=== PATIENT | female | born 1990 | race Caucasian/White ===

== ENCOUNTER 2025-08-05 11:07 | Outpatient (CLI) | payer OTHER, SELFPAY ==
--- OUTSIDE RECORDS SUMMARY | 2025-08-05 11:10 | XMS_ITS | Continuity of Care Document ---
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 Plan of Treatment Reminders Order Date Submit Date Provider Last Modified By Organization Details Last Modified Time Details Appointments None recorded. Lab None recorded. Referral None recorded. Procedures None recorded. Surgeries None recorded. Imaging None recorded. Medication Orders phentermine 37.5 mg tablet 2024 025 [facility] [address], [address] [place] [address], [id number], 11:05:37 trazodone 50 mg tablet 2024 025 [facility] [address], [address] [place] [address], [id number], 11:05:33 escitalopra m 10 mg tablet 2024 025 [facility] [address], [address] [place] [address], [id number], 11:05:29 Lo Loestrin Fe 1 mg-10 mcg (24)/10 mcg (2) tablet 2024 025 [facility] [address], [address] [place] [address], [id number], 18:33:14 Patient TargetsNo targets recorded. Patient InstructionsNo instructions recorded. Reason for Referral None Reported. Problems Name Problem SNOMED Code Status Onset Date Resolution Date Notes Provider Name and Address Organization Details Recorded Time Anxiety 59753665 Active 024 Jose Luna [facility], [facility] & [place] 12/29/2023 08:55:01 Problem Notes None recorded. Medical Equipment None Reported. Allergies Allergen ID Allergen Name Allergen Category Reaction Reaction Severity Criticality Documentation Date Start Date Code Code System Note Provider Name and Address Organization Details Recorded Time 700796 lavender extract food Not available Not available Not available 12/29/2023 [id number] RxNorm TANESHA LOMAX NP [address] [place] [address], [id number] [place] [address] & [place] 08:50:40 No known drug allergies Medications Name Sig Start Date Stop Date Status Note LastModified by Organization Details LastModified Time trazodone 50 mg tablet Take 2 tablets as needed by oral route at bedtime for 90 days, for insomnia . 2024 active Not Available Not Available Not Avai lable phentermine 37.5 mg tablet TAKE 1 TABLET BY MOUTH ONCE DAILY FOR 30 DAYS active Not Available Not Available No t Available amoxicillin 875 mg tablet TAKE 1 TABLET BY MOUTH TWICE DAILY FOR 10 DAYS 03/14 completed Not Available Not Available Not Available benzonatate 100 mg capsule TAKE 1 CAPSULE BY MOUTH THREE TIMES DAILY NEEDED FOR COUGH FOR 10 DAYS 12/28 completed Not Available Not Available Not Available norethindron e acetate 5 mg tablet TAKE 1 TABLET BY MOUTH EVERY 6 HOURS FOR 2 DAYS, THEN TAKE 1 TABLET EVERY 8 HOURS FOR 2 DAYS, THEN TAKE 1 TABLET EVERY 12 HOURS FOR 21 DAYS active Not Available Not Available No t Available fluticasone propionate 50 mcg/actuatio n nasal spray,suspen jose USE 1 SPRAY(S) IN EACH NOSTRIL ONCE DAILY FOR 10 DAYS 12/28 completed Not Available Not Available Not Available amoxicillin 875 mg-potassium clavulanate 125 mg tablet TAKE 1 TABLET BY MOUTH TWICE DAILY FOR 7 DAYS 12/28 completed Not Available Not Available Not Available Ventolin HFA 90 mcg/actuatio n aerosol inhaler INHALE 2 PUFFS BY MOUTH EVERY 4 TO 6 HOURS NEEDED FOR 30 DAYS active Not Available Not Available No t Available escitalopram 10 mg tablet Take 1 tablet by mouth once daily 2024 active Not Available Not Available Not Avai lable Lo Loestrin Fe 1 mg-10 mcg (24)/10 mcg (2) tablet TAKE 1 TABLET BY MOUTH ONCE DAILY 07/15 completed Not Available Not Available Not Available Vitals Date Recorded Body height Body mass index (BMI) Body weight Provider Name and Address Organization Details Last Updated DateTime 06/27/2025 170.18 cm 41.5 kg/m2 296528.98 g TANESHA LOMAX, KOLE [address] [place] [address], [id number] & [place] 06/27/2025 11:02:13 Social History Question Answer Notes LastModified by Organizat ion Details LastModified Time Tobacco Smoking Status Never Smoker Asuncion Vivas maxi, [facility] & [place] 12/15/2023 09:45:32 Do You Have An Advance Directive? No [email or web address] Information not available 03/14/2025 Are You Blind Or Do You Have Difficulty Seeing? No Information not available 12/29/2023 Is Blood Transfusion Acceptable In An Emergency? Yes [email or web address] Information not available 03/14/2025 What Is Your Level Of Caffeine Consumption? Occasional Information not available 03/14/2025 Are You Deaf Or Do You Have Serious Difficulty Hearing? No [email or web address] Information not available 03/14/2025 What Type Of Diet Are You Following? [email or web address] Information not available 03/14/2025 How Many Days Of Moderate To Strenuous Exercise, Like A Brisk Walk, Did You Do In The Last 7 Days? 5 [email or web address] Information not available 03/14/2025 Do You Feel Safe At Home? Yes [email or web address] Information not available 03/14/2025 Do You Have A Medical Power Of Pet Adoption Counselor? No Information not available 03/14/2025 What Was The Date Of Your Most Recent Tobacco Screening? 12/29/2023 [email or web address] Information not available 12/29/2023 How Many Children Do You Have? 0 [email or web address] Information not available 03/14/2025 What Is Your Relationship Status? Single [email or web address] Information not available 03/14/2025 Do You Use Your Seat Belt Or Car Seat Routinely? Yes [email or web address] Information not available 03/14/2025 Are You Sexually Active? No [email or web address] Information not available 03/14/2025 Are You Passively Exposed To Smoke? No Information no t available 12/29/2023 Do You Have Difficulty Walking Or Climbing Stairs? No [email or web address] Information not available 03/14/2025 Sex: Female Functional Status Question Answer Note LastModified by Organizat ion Details LastModified Time Do you use any illicit or recreational drugs? No Information not available 12/29/2023 Do you or have you ever used any other forms of tobacco or nicotine? No [email or web address] Information not available 03/14/2025 What is your level of alcohol consumption? Occasional [email or web address] Information not available 02/17/2025 Do you have transportation difficulties? No Information not available 03/14/2025 Are you able to walk independently without assistance or assistive devices? YESWOREST [email or web address] Information not available 03/14/2025 Do you have difficulty doing errands alone? No [email or web address] Information not available 03/14/2025 Are you able to care for yourself independently? 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 No [email or web address] Information not available 03/14/2025 What is your exercise level? Occasional Information not available 12/29/2023 Mental Status Question Answer Note LastModified by Organizat ion Details LastModified Time Do you feel stressed (tense, restless, nervous, or anxious, or unable to sleep at night)? [id number] Information not available 12/29/2023 Do you have difficulty concentrating, remembering or making decisions? Yes [email or web address] Information no t available 03/14/2025 Family History Relationship Description Onset Age of this Age Resolved Age Notes LastModified by Organization Details LastModified Time Father No current problems or disability [email or web address] Not available 06/27 10:47:07 Father Hypertensive disorder pt. added direct ly (12/25) [email or web address] Not available 12/26/2023 09:22:29 Mother No current problems or disability Mother in her 30s due to brain aneury sm due to alcoho l and drug use [email or web address] Not available 06/27/2025 10:47:07 Mother Aneurysm 33 [email or web address] Not availabl e 06/27/2025 10:47:07 Paternal Grandmother Heart disease pt. added direct ly (12/25) [email or web address] Not available 12/26/2023 09:22:46 Sister Disorder of thyroid gland pt. added direct ly (03/11) [email or web address] Not available 03/11/2025 12:32:39 Medical History Condition Response Obesity Y Depression Y Asthma Y Gynecological History Statement/Question Response Menses Monthly Y Abnormal Pap N Duration of Flow (days) 7 Current Control Method BCPs Flow Heavy Date of LMP 02/16/2025 Sexually Active? N Obstetrics History GPAL:G 0 P 0 0 0 0 Immunizations Vaccine Type Date Status Note Provider Nam e and Address Organization Details Recorded Time Tdap 12/29/2023 completed Jose Luna null, [place] - [facility] - [place] & [place] 12/29/2023 09:46:04 MMR 10/01/2001 completed Jose Luna null, [place] [facility] [place] & [place] 12/29/2023 08:54:33 COVID-19, mRNA, LNP-S, PF, 30 mcg/0.3 mL dose 08/19/2021 completed Jose Luna null, [place] - [facility] [place] & [place] 12/29/2023 08:54:33 COVID-19, mRNA, LNP-S, PF, 30 mcg/0.3 mL dose 09/30/2021 completed Jose Luna null, [place] [facility] [place] & [place] 12/29/2023 08:54:33 Hep B, adolescent or pediatric 10/29/2001 completed Jose Luna null, [place] - [facility] & [place] 12/29/2023 08:54:33 Hep B, adolescent or pediatric 10/01/2001 completed Jose Luna null, [place] - [facility] - [place] & [place] 12/29/2023 08:54:33 Influenza, split virus, quadrivalent, PF 09/10/2020 completed Jose german, [facility] & [place] 12/29/2023 08:54:33 Past Encounters Encounter ID Performer Location Encounter Start Date Encounter Closed Date Diagnosis/Indication Diagnosis SNOMED-CT Code Diagnosis ICD10 Code Diagnosis IMO Codes Diagnosis Note [id number] TANESHA LOMAX NP [facility] [address] [facility] [place] [address] 06/27/2025 10:46:58 06/27/2025 16:33:53 Generalized anxiety disorder 02095248 F41.1 controlled , denies SI/HI, refills provided Contracept ion care management 237594129 Z30.9 refill provided Insomnia 236689931 G47.0 0 controlled , continue trazodone sleep hygiene Body mass index 40+ - severely obese 944097857 Z68.41 EKG reviewed and normal 2024not currently having any side effects with phentermin e, will continue for another month and then do a drug holiday continue with lifestyle changes once a week software trainer tomorrow starts Health Concerns Section Related Observation LastModified by Organization Detai ls LastModified Time None Recorded Concern Status LastModified by Organization Details LastModified Time None Recorded Payers Encounter Date Sequence Insurance Name Policy Number Policy Beavers Covered Member ID Beavers Member ID Guarantor Name 06/27/2025 1 [facility] ([place]ICA[place] REPLACEMENT - [place]MO) [id number] Nichol Wong [id number] Nichol Wong Notes Date Note Type Note Provider Name and Address Organization Details Recorded Time 06/27/2025 text/html ROS as noted in the HPI TELEPHONE VISIT BOTH PATIENT AND PROVIDER LOCATED IN [place] 34-year-old female who presents via telephone for follow-up on weight management. Continues to work on lifestyle changes. Has decreased her portion sizes and carbohydrate intake. Will start with a software trainer for exercise tomorrow. Tolerating phentermine without side effect. Anxiety is controlled. Insomnia is controlled TANESHA LOMAX NP [address] [facility], [place], [address], [place] - [facility] - [place] & [place] 06/27/2025 12:37:29 OBGyn Episode No OBEpisode recorded.
--- OUTSIDE RECORDS SUMMARY | 2025-08-05 11:10 | XMS_ITS | Data Portability ---
Author Organization [facility] [place] Address [address] [place] [address] Care Team Providers Care Code And Test Clerk Name Role Phone TANESHA LOMAX Primary Care Provider Assessment Encounter Date Assessment Date Assessment LastModified by Organization Details LastModified Time 02/18/2024 02/18/2024 8 minute phone conversation zafar Not available 02/18/2024 10:39:57 05/03/2025 05/03/2025 3:38 to 3:48 on care for patient on this day for this visit TELEPHONE PT AND PROVIDER BOTH LOCATED IN [place] AT TIME OF VISIT zafar Not available 05/25/2025 14:30:07 Plan of Treatment Reminders Order Date Submit Date Provider Last Modified By Organization Details Last Modified Time Details Appointments None recorded. Lab iron + TIBC + ferritin, serum [address] (Laboratory), [place], [address], 5 08:38:48 vitamin B12 + folate, serum or blood [address] (Laboratory), [place], [address], 5 08:38:49 CMP, serum or plasma 2024 025 [facility] (Laboratory), [place], [address], 5 13:45:03 CBC w/ auto diff 2024 025 [facility] (Laboratory), [address] [place], [address], 5 13:14:23 lipid panel, serum 2024 025 [facility] (Laboratory), [address] [place], [address], 5 13:45:05 TSH + free T4, serum [address] (Laboratory), [address] [place], [address], 5 08:38:48 hemoglobin A1c + average glucose, QN, blood [address] (Laboratory), [address] [place], [address], 5 08:38:48 CMP, serum or plasma 2023 024 [facility] (Laboratory), [address] [place], [address], 4 12:46:01 TSH, serum or plasma 2023 024 [facility] (Laboratory), [address] [place], [address], 4 12:45:58 test, urine [address] [facility], [address] [place], [address], 4 09:45:34 CBC w/ auto diff 2023 024 [facility] (Laboratory), [address] [place], [address], 4 11:58:51 iron + TIBC + ferritin, serum 2023 024 [facility] (Laboratory), [address] [place], [address], 4 09:19:07 vitamin B12 + folate, serum or blood 2023 [facility] (Laboratory), [address] [place], [address], 4 09:19:07 lipid panel, serum 2023 024 [facility] (Laboratory), [address] [place], [address], 4 12:47:04 hemoglobin A1c + average glucose, QN, blood [address] (Laboratory), [address] [place], [address], 4 08:12:26 vitamin D, 25-hydroxy , total, serum 2023 024 [facility] (Laboratory), [address] [place], [address], 4 09:19:07 Referral None recorded. Procedures None recorded. Surgeries None recorded. Imaging electrocar diogram 2024 025 [facility], [address] [place], [address], 5 12:25:19 Medication Orders phentermin e 37.[address] [facility], [address], [place], [address], 5 11:05:37 trazodone 50 mg tablet [address] [facility], [address] [place] [address], [address], 11:05:33 escitalopr am 10 mg tablet [address] [facility], [address] [place], [address], 11:05:29 Lo Loestrin Fe 1 mg-10 mcg (24)/10 mcg (2) tablet 2024 [facility] [address], [address] [place] [address], [address], 18:33:14 phentermin e 37.[address] [facility] [address], [address] [place] [address], [address], 15:45:30 trazodone [address] [facility] [address], [address] [place] [address], [address], 12:16:57 Lo Loestrin Fe 1 mg-10 mcg (24)/10 mcg (2) tablet 2024 025 [facility] [address], [address] [place] [address], [address], 16:11:00 phentermin e 37.5 mg tablet [address] [facility] [address], [address] [place] [address], [address], 13:46:27 escitalopr am [address] [facility], [address] [place], [address], 12:16:59 albuterol sulfate HFA 90 mcg/actuat ion aerosol inhaler [address] [facility] [address], [address] [place] [address], [address], 5 12:16:56 trazodone 50 mg tablet [address] [facility] [address], [address] [place] [address], [address], 4 10:39:11 Lo Loestrin Fe 1 mg-10 mcg (24)/10 mcg (2) tablet 2023 024 [facility] [address], [address] [place] [address], [address], 5 16:11:00 Lexapro 10 mg tablet [address] [facility] [address], [address] [place] [address], [address], 4 09:17:47 albuterol sulfate HFA 90 mcg/actuat ion aerosol inhaler [address] [facility] [address], [address] [place] [address], [address], 4 09:17:47 Patient TargetsNo targets recorded. Patient InstructionsNo instructions recorded. Reason for Referral None Reported. Results Created Date Observation Date Name Description Value Unit Range Abnormal Flag Note LastModifiedBy Organization Detail LastModifiedTime 12/29/1912/29/2023 CBC AUTO W DIFF WBC 7.9 10 4.5-11 .5 Not Available [facility] (Lab Registration) [address] [place], [address], 12/29/2023 11:29:03 12/29/19 24 12/29/2023 CBC AUTO W DIFF RBC 5.53 10 4.25-5 .57 Not Available [facility] (Lab Registration) [address] [place] [place], [address], 12/29/2023 11:29:03 03/25/20 24 12/29/2023 CBC AUTO W DIFF HGB 15.4 g/dL 12.0-1 5.7 Not Available [facility] (Lab Registration) [address] [place], [address], 12/29/2023 11:29:03 12/29/19 24 12/29/2023 CBC AUTO W DIFF HCT 46.6 % 36.0-4 7.0 Not Available [facility] (Lab Registration) [address] [place], [address], 12/29/2023 11:29:03 12/29/19 24 12/29/2023 CBC AUTO W DIFF MCV 84.3 fL 80-95 Not Available [facility] (Lab Registration) [address] [place], [address], 12/29/2023 11:29:03 12/29/19 24 12/29/2023 CBC AUTO W DIFF MCH 27.8 pg 27.0-3 4.0 Not Available [facility] (Lab Registration) [address] [place], [address], 12/29/2023 11:29:03 12/29/19 24 12/29/2023 CBC AUTO W DIFF MCHC 33.0 g/dL 32.0-3 6.0 Not Available [facility] (Lab Registration) [address] [place], [address], 12/29/2023 11:29:03 12/29/19 24 12/29/2023 CBC AUTO W DIFF platelet count 259 10 150-45 0 Not Available [facility] (Lab Registration) [address] [place], [address], 12/29/2023 11:29:03 12/29/19 24 12/29/2023 CBC AUTO W DIFF RDW 12.8 % 12.3-1 5.1 Not Available [facility] (Lab Registration) [address] [place], [address], 12/29/2023 11:29:03 12/29/19 24 12/29/2023 CBC AUTO W DIFF MPV 10.7 fL 7.4-10 .4 high Not Available [facility] (Lab Registration) [address] [place], [address], 12/29/2023 11:29:03 12/29/19 24 12/29/2023 CBC AUTO W DIFF granulocyte% 66.7 % 40-75 Not Available [facility] (Lab Registration) [address] [place], [address], 12/29/2023 11:29:03 12/29/19 24 12/29/2023 CBC AUTO W DIFF lymphocyte% 23.6 % 15-57 Not Available [facility]) [address] [place], [address], 12/29/2023 11:29:03 12/29/19 24 12/29/2023 CBC AUTO W DIFF monocyte% 7.2 % 4.0-12 .0 Not Available [facility] (Lab Registration) [address] [place], [address], 12/29/2023 11:29:03 12/29/19 24 12/29/2023 CBC AUTO W DIFF eosinophil% 1.8 % 0.0-4. 0 Not Available [facility] (Lab Registration) [address] [place], [address], 12/29/2023 11:29:03 12/29/19 24 12/29/2023 CBC AUTO W DIFF basophil% 0.6 % 0.0-1. 0 Not Available [facility] (Lab Registration) [address] [place], [address], 12/29/2023 11:29:03 12/29/19 24 12/29/2023 CBC AUTO W DIFF immature granulocytes % 0.1 % 0.0-0. 8 Not Available [facility] (Lab Registration) [address] [place], [address], 12/29/2023 11:29:03 12/29/19 24 12/29/2023 CBC AUTO W DIFF granulocyte# 5.25 10 Not Available [facility] (Lab Registration) [address] [place], [address], 12/29/2023 11:29:03 12/29/19 24 12/29/2023 CBC AUTO W DIFF lymphocyte# 1.86 10 Not Available [facility] ([facility]) [address] [place], [address], 12/29/2023 11:29:03 12/29/19 24 12/29/2023 CBC AUTO W DIFF monocyte# 0.57 10 Not Available [facility] (Lab Registration) [address] [place], [address], 12/29/2023 11:29:03 12/29/19 24 12/29/2023 CBC AUTO W DIFF eosinophil# 0.14 10 Not Available [facility] ([facility]) [address] [place], [address], 12/29/2023 11:29:03 12/29/19 24 12/29/2023 CBC AUTO W DIFF basophil# 0.05 10 Not Available [facility] (Lab Registration) [address] [place], [address], 12/29/2023 11:29:03 12/29/19 24 12/29/2023 CBC AUTO W DIFF immature granulocytes # 0.01 10 Not Available [facility] ([facility]) [address] [place], [address], 12/29/2023 11:29:03 12/29/19 24 12/29/2023 CBC AUTO W DIFF manual differential NO Not Available [facility] (Lab Registration) [address] [place], [address], 12/29/2023 11:29:03 12/29/19 24 12/29/2023 CBC AUTO W DIFF note Unles s other martínez noted testi ng perfo rmed at: [facility] [address] [place] [address] [phone] Virgil haider MD CLIA: [id number] Not Available [facility] (Lab Registration) [address] , [place], [address], 12/29/2023 11:29:03 12/29/19 24 12/29/2023 IRON/ TIBC/ %SAT (IRON STUDI ES) iron 64 ug/dL 35-150 Not Available [facility] (Lab Registration) [address] [place], [address], 12/29/2023 11:44:20 12/29/19 24 12/29/2023 IRON/ TIBC/ %SAT (IRON STUDI ES) total iron bind cap (TIBC) 325 ug/dL 250-45 0 Not Available [facility] (Lab Registration) [address], [place], [address], 12/29/2023 11:44:20 12/29/19 24 12/29/2023 IRON/ TIBC/ %SAT (IRON STUDI ES) % saturation 20 % 15-55 Not Available [facility] (Lab Registration) [address] [place], [address], 12/29/2023 11:44:20 12/29/19 24 12/29/2023 IRON/ TIBC/ %SAT (IRON STUDI ES) note Unles s other martínez noted testi ng perfo rmed at: [facility] [address] [place] [address] [phone] Virgil haider MD CLIA: [id number] Not Available [facility] (Lab Registration) [address] [place], [address], 12/29/2023 11:44:20 12/29/19 24 12/29/2023 HEMOG LOBIN A1C glycosylated hemoglobin A1C 5.5 % 4.5-6. 2 Not Available [facility] (Lab Registration) [address] [place], [address], 12/29/2023 12:09:50 12/29/19 24 12/29/2023 HEMOG LOBIN A1C estimated average glucose 111 mg/dL 82-131 Not Available [facility] ([facility] Registration) [address], [address], 12/29/2023 12:09:50 12/29/19 24 12/29/2023 HEMOG LOBIN A1C note Bennettes s other martínez noted testi ng perfo rmed at: [facility] [address] [place] [phone] Virgil haider MD CLIA: [id number] Not Available [facility] (Lab Registration) [address], [address], 12/29/2023 12:09:50 12/29/19 24 12/29/2023 THYRO ID STIMU LATIN G HORMO NE thyroid stimulating hormone 1.98 mIU/m L 0.34-4 .80 Not Available [facility] (Lab Registration) [address] [place], [address], 12/29/2023 12:45:57 12/29/19 24 12/29/2023 THYRO ID STIMU LATIN G HORMO NE note Carito haider other martínez noted testi ng perfo rmed at: [facility] [address] [place] [phone] Virgil haider MD CLIA: [id number] Not Available [facility] (Lab Registration) [address] [place], [address], 12/29/2023 12:45:57 12/29/19 24 12/29/2023 VITAM IN D TOTAL (D2+D 3) vitamin D25 (D2+D3) 30.4 NG/mL 30-100 Not Available [facility] ([facility]) [address] [place], [address], 12/29/2023 12:45:59 12/29/19 24 12/29/2023 VITAM IN D TOTAL (D2+D 3) note Unles s other martínez noted testi ng perfo rmed at: [facility] [address] [place] [address] [phone] Virgil haider MD CLIA: [id number] Not Available [facility] (Lab Registration) [address] [place], [address], 12/29/2023 12:45:59 12/29/19 24 12/29/2023 VITAM IN B12 vitamin B12 3210 pg/mL 193-98 6 high Not Available [facility] (Lab Registration) [address] [place], [address], 12/29/2023 12:46:00 12/29/19 24 12/29/2023 VITAM IN B12 folate (folic acid), serum 11.8 NG/mL 8.6-58 .9 Not Available [facility] (Lab Registration) [address] [place], [address], 12/29/2023 12:46:00 12/29/19 24 12/29/2023 VITAM IN B12 note Carito haider other martínez noted testi ng perfo rmed at: [facility] [address] [place] [address] [phone] Vrigil haider MD CLIA: [id number] Not Available [facility] (Lab Registration) [address] [place], [address], 12/29/2023 12:46:00 12/29/19 24 12/29/2023 COMP METAB OLIC PANEL sodium 140 mmol/ L 136-14 5 Not Available [facility] (Lab Registration) [address] [place], [address], 12/29/2023 12:46:01 12/29/19 24 12/29/2023 COMP METAB OLIC PANEL potassium 4.1 mmol/ L 3.5-5. 1 Not Available [facility] (Lab Registration) [address] [place], [address], 12/29/2023 12:46:01 12/29/19 24 12/29/2023 COMP METAB OLIC PANEL chloride 104 mmol/ L 98-107 Not Available [facility] (Lab Registration) [address] [place], [address], 12/29/2023 12:46:01 12/29/19 24 12/29/2023 COMP METAB OLIC PANEL carbon dioxide 25 mmol/ L 21-32 Not Available [facility] (Lab Registration) [address] [place], [address], 12/29/2023 12:46:01 12/29/19 24 12/29/2023 COMP METAB OLIC PANEL anion gap 11.0 Not Available [facility] (Lab Registration) [address] [place], [address], 12/29/2023 12:46:01 12/29/19 24 12/29/2023 COMP METAB OLIC PANEL glucose 102 mg/dL 70-110 Not Available [facility] (Lab Registration) [address] [place], [address], 12/29/2023 12:46:01 12/29/19 24 12/29/2023 COMP METAB OLIC PANEL blood urea nitrogen 14 mg/dL 7-18 Not Available [facility] ([facility]) [address] [place], [address], 12/29/2023 12:46:01 12/29/19 24 12/29/2023 COMP METAB OLIC PANEL creatinine 0.8 mg/dL 0.6-1. 0 Not Available [facility] (Lab Registration) [address] [place], [address], 12/29/2023 12:46:01 12/29/19 24 12/29/2023 COMP METAB OLIC PANEL BUN/creatini ne ratio 17.5 ratio 9-21 Not Available [facility] ([facility] Registration) [address] [place], [address], 12/29/2023 12:46:01 12/29/19 24 12/29/2023 COMP METAB OLIC PANEL estimated glom filtration rate 88 mL/mi n >60- Not Available [facility] (Lab Registration) [address] [place], [address], 12/29/2023 12:46:01 12/29/19 24 12/29/2023 COMP METAB OLIC PANEL total protein 7.2 g/dL 6.4-8. 2 Not Available [facility] (Lab Registration) [address] [place], [address], 12/29/2023 12:46:01 12/29/19 24 12/29/2023 COMP METAB OLIC PANEL albumin 3.8 g/dL 3.4-5. 0 Not Available [facility] (Lab Registration) [address] [place], [address], 12/29/2023 12:46:01 12/29/19 24 12/29/2023 COMP METAB OLIC PANEL calcium 8.9 mg/dL 8.5-10 .1 Not Available [facility] (Lab Registration) [address] [place], [address], 12/29/2023 12:46:01 12/29/19 24 12/29/2023 COMP METAB OLIC PANEL corrected calcium 9.1 mg/dL 8.5-10 .1 Not Available [facility] (Lab Registration) [address] [place], [address], 12/29/2023 12:46:01 12/29/19 24 12/29/2023 COMP METAB OLIC PANEL bilirubin total 1.5 mg/dL 0.4-1. 5 Not Available [facility] (Lab Registration) [address], [place], [address], 12/29/2023 12:46:01 12/29/19 24 12/29/2023 COMP METAB OLIC PANEL AST (SGOT) 21 U/L 15-37 Not Available [facility] (Lab Registration) [address], [place], [address], 12/29/2023 12:46:01 12/29/19 24 12/29/2023 COMP METAB OLIC PANEL ALT (SGPT) 54 U/L 12-78 Not Available [facility] (Lab Registration) [address], [place], [address], 12/29/2023 12:46:01 12/29/19 24 12/29/2023 COMP METAB OLIC PANEL alk phosphatase 88 U/L 50-120 Not Available [facility] (Lab Registration) [address], [place], [address], 12/29/2023 12:46:01 12/29/19 24 12/29/2023 COMP METAB OLIC PANEL note Unles s other martínez noted testi ng perfo rmed at: [facility] [address] [place] [address] [phone] Virgil haider MD CLIA: [id number] Not Available [facility] (Lab Registration) [address], [place], [address], 12/29/2023 12:46:01 12/29/19 24 12/29/2023 LIPID PANEL triglyceride 109 mg/dL 20-200 The Natio nal Nicole st[employer] l [employer]ca tion Progr am (NCEP ) has set the follo wing guide lines for Fasti ng Trigl yceri sal: KUMAR L: <150 mg/dL BORDE RLINE HIGH: 150 - 199 mg/dL HIGH: 200 - 499 mg/dL VERY HIGH: > or =500 mg/dL Not Available [facility] (Lab Registration) [address], [place], [address], 12/29/2023 12:47:04 12/29/19 24 12/29/2023 LIPID PANEL cholesterol 206 mg/dL 0-200 high The Natio nal [employer]ca t[employer] Progr am (NCEP ) has set the follo wing guide lines for Fasti ng Nicole stero l: SATISH ABLE: <200 mg/dL BORDE RLINE HIGH: 200 - 239 mg/dL HIGH: > or =240 mg/dL Not Available [facility] (Lab Registration) [address], [place], [address], 12/29/2023 12:47:04 12/29/19 24 12/29/2023 LIPID PANEL HDL cholesterol 50 mg/dL 60- low The Natio nal [employer]ca tion Progr am (NJEP ) has set the follo wing guide lines for Fasti ng HDL Nicole stero l: LOW HDL: <40 mg/dL KUMAR L: 40 - 60 mg/dL SATISH ABLE: >60 mg/dL Not Available [facility] (Lab Registration) [address], [place], [address], 12/29/2023 12:47:04 12/29/19 24 12/29/2023 LIPID PANEL LDL calculated 134 mg/dL 100- The Natio nal [employer] l [employer]ca tion Progr am (NJEP ) has set the follo wing guide lines for Fasti ng LDL Nicole stero l: OPTIM AL: < 100 mg/dL LOW RISK: 100 - 129 mg/dL BORDE RLINE HIGH: 130 - 159 mg/dL HIGH: 160 - 189 mg/dL VERY HIGH: > or = 190 mg/dL Not Available [facility] (Lab Registration) [address] [place], [address], 12/29/2023 12:47:04 12/29/19 24 12/29/2023 LIPID PANEL chol/HDL ratio 4 ratio -5 Not Available [facility] ([facility] Registration) [address] [place], [address], 12/29/2023 12:47:04 12/29/19 24 12/29/2023 LIPID PANEL note Unles s other martínez noted testi ng perfo rmed at: [facility] [address] [place] [address] [phone] Virgil haider MD CLIA: [id number] Not Available [facility] (Lab Registration) [address] [place], [address], 12/29/2023 12:47:04 12/29/19 24 12/29/2023 DAVEY TIN ferritin 59 NG/mL 8-388 Not Available [facility] (Lab Registration) [address] [place], [address], 12/29/2023 12:47:06 12/29/19 24 12/29/2023 DAVEY TIN note Bennettes s other martínez noted testi ng perfo rmed at: [facility] [address] [place] [address] [phone] Virgil haider MD CLIA: [id number] Not Available [facility] (Lab Registration) [address] [place], [address], 12/29/2023 12:47:06 12/29/19 24 12/29/2023 pregn amador test, urine HCG negati ve Not Available [facility] [address] [facility] [place], [address], 12/29/2023 08:55:28 03/14/20 25 03/14/2025 CBC AUTO W DIFF WBC 6.9 10 4.5-11 .5 Not Available [facility] (Lab Registration) [address] [place], [address], 03/14/2025 13:14:23 03/14/20 25 03/14/2025 CBC AUTO W DIFF RBC 5.48 10 4.25-5 .57 Not Available [facility] (Lab Registration) [address] [place], [address], 03/14/2025 13:14:23 03/14/20 25 03/14/2025 CBC AUTO W DIFF HGB 15.8 g/dL 12.0-1 5.7 high Not Available [facility] (Lab Registration) [address] [place], [address], 03/14/2025 13:14:23 03/14/20 25 03/14/2025 CBC AUTO W DIFF HCT 47.0 % 36.0-4 7.0 Not Available [facility] (Lab Registration) [address] [place], [address], 03/14/2025 13:14:23 03/14/20 25 03/14/2025 CBC AUTO W DIFF MCV 85.8 fL 80-95 Not Available [facility] (Lab Registration) [address] [place], [address], 03/14/2025 13:14:23 03/14/20 25 03/14/2025 CBC AUTO W DIFF MCH 28.8 pg 27.0-3 4.0 Not Available [facility] (Lab Registration) [address] [place], [address], 03/14/2025 13:14:23 03/14/20 25 03/14/2025 CBC AUTO W DIFF MCHC 33.6 g/dL 32.0-3 6.0 Not Available [facility] (Lab Registration) [address] [place], [address], 03/14/2025 13:14:23 03/14/20 25 03/14/2025 CBC AUTO W DIFF platelet count 225 10 150-45 0 Not Available [facility] (Lab Registration) [address] [place], [address], 03/14/2025 13:14:23 03/14/20 25 03/14/2025 CBC AUTO W DIFF RDW 12.4 % 12.3-1 5.1 Not Available [facility] (Lab Registration) [address] [place], [address], 03/14/2025 13:14:23 03/14/20 25 03/14/2025 CBC AUTO W DIFF MPV 10.3 fL 7.4-10 .4 Not Available [facility] (Lab Registration) [address] [place], [address], 03/14/2025 13:14:23 03/14/20 25 03/14/2025 CBC AUTO W DIFF granulocyte% 59.4 % 40-75 Not Available [facility] (Lab Registration) [address] [place], [address], 03/14/2025 13:14:23 03/14/20 25 03/14/2025 CBC AUTO W DIFF lymphocyte% 32.0 % 15-57 Not Available [facility] ([facility] Registration) [address] [place], [address], 03/14/2025 13:14:23 03/14/20 25 03/14/2025 CBC AUTO W DIFF monocyte% 7.1 % 4.0-12 .0 Not Available [facility] (Lab Registration) [address] [place], [address], 03/14/2025 13:14:23 03/14/20 25 03/14/2025 CBC AUTO W DIFF eosinophil% 1.0 % 0.0-4. 0 Not Available [facility] (Lab Registration) [address] [place], [address], 03/14/2025 13:14:23 03/14/20 25 03/14/2025 CBC AUTO W DIFF basophil% 0.4 % 0.0-1. 0 Not Available [facility] (Lab Registration) [address] [place], [address], 03/14/2025 13:14:23 03/14/20 25 03/14/2025 CBC AUTO W DIFF immature granulocytes % 0.1 % 0.0-0. 8 Not Available [facility] (Lab Registration) [address] [place], [address], 03/14/2025 13:14:23 03/14/20 25 03/14/2025 CBC AUTO W DIFF granulocyte# 4.08 10 Not Available [facility] (Lab Registration) [address] [place], [address], 03/14/2025 13:14:23 03/14/20 25 03/14/2025 CBC AUTO W DIFF lymphocyte# 2.20 10 Not Available [facility] ([facility]) [address] [place], [address], 03/14/2025 13:14:23 03/14/20 25 03/14/2025 CBC AUTO W DIFF monocyte# 0.49 10 Not Available [facility] (Lab Registration) [address] [place], [address], 03/14/2025 13:14:23 03/14/20 25 03/14/2025 CBC AUTO W DIFF eosinophil# 0.07 10 Not Available [facility] ([facility] Registration) [address] [place], [address], 03/14/2025 13:14:23 03/14/20 25 03/14/2025 CBC AUTO W DIFF basophil# 0.03 10 Not Available [facility] (Lab Registration) [address] [place], [address], 03/14/2025 13:14:23 03/14/20 25 03/14/2025 CBC AUTO W DIFF immature granulocytes # 0.01 10 Not [facility] (Lab Registration) [address] [place], [address], 03/14/2025 13:14:23 03/14/20 25 03/14/2025 CBC AUTO W DIFF manual differential NO Not Available [facility] (Lab Registration) [address] [place], [address], 03/14/2025 13:14:23 03/14/20 25 03/14/2025 CBC AUTO W DIFF note Carito pozo martínez noted testi ng perfo rmed at: [facility] [address] [place] [address] [phone] Virgil haider MD CLIA: [id number] Not Available [facility] (Lab Registration) [address], [place], [address], 03/14/2025 13:14:23 03/14/20 25 03/14/2025 HEMOG LOBIN A1C glycosylated hemoglobin A1C 5.4 % 4.5-6. 2 Not Available [facility] (Lab Registration) [address] [place], [address], 03/14/2025 13:33:48 03/14/20 25 03/14/2025 HEMOG LOBIN A1C estimated average glucose 108 mg/dL 82-131 Not Available [facility] (Lab Registration) [address] [place], [address], 03/14/2025 13:33:48 03/14/20 25 03/14/2025 HEMOG LOBIN A1C note Carito martínez noted testi ng perfo rmed at: [facility] [address] [place] [address] [phone] Virgil haider MD CLIA: [id number] Not Available [facility] (Lab Registration) [address] [place], [address], 03/14/2025 13:33:48 03/14/20 25 03/14/2025 THYRO ID STIMU LATIN G HORMO NE thyroid stimulating hormone 1.61 mIU/m L 0.34-4 .80 Not Available [facility] (Lab Registration) [address] [place], [address], 03/14/2025 13:45:01 03/14/20 25 03/14/2025 THYRO ID STIMU LATIN G HORMO NE note Unles s other martínez noted testi ng perfo rmed at: [facility] [address] [place] [address] [phone] Virgil haider MD CLIA: [id number] Not Available [facility] (Lab Registration) [address], [place], [address], 03/14/2025 13:45:01 03/14/20 25 03/14/2025 T4 FREE T4,free 1.15 NG/dL 0.76-1 .46 Effec tive today 013 new Refer ence Range . Not Available [facility] (Lab Registration) [address], [place], [address], 03/14/2025 13:45:02 03/14/20 25 03/14/2025 T4 FREE note Unles s other martínez noted testi ng perfo rmed at: [facility] [address] [place] [address] [phone] Virgil haider MD CLIA: [id number] Not Available [facility] (Lab Registration) [address], [place], [address], 03/14/2025 13:45:02 03/14/20 25 03/14/2025 COMP METAB OLIC PANEL sodium 136 mmol/ L 136-14 5 Not Available [facility] (Lab Registration) [address] [place], [address], 03/14/2025 13:45:03 03/14/20 25 03/14/2025 COMP METAB OLIC PANEL potassium 4.3 mmol/ L 3.5-5. 1 Not Available [facility] (Lab Registration) [address], [address], 03/14/2025 13:45:03 03/14/20 25 03/14/2025 COMP METAB OLIC PANEL chloride 103 mmol/ L 98-107 Not Available [facility] (Lab Registration) [address] [place], [address], 03/14/2025 13:45:03 03/14/20 25 03/14/2025 COMP METAB OLIC PANEL carbon dioxide 27 mmol/ L 21-32 Not Available [facility] (Lab Registration) [address] [place], [address], 03/14/2025 13:45:03 03/14/20 25 03/14/2025 COMP METAB OLIC PANEL anion gap 6.0 Not Available [facility] (Lab Registration) [address] [place], [address], 03/14/2025 13:45:03 03/14/20 25 03/14/2025 COMP METAB OLIC PANEL glucose 89 mg/dL 70-110 Not Available [facility] (Lab Registration) [address] [place], [address], 03/14/2025 13:45:03 03/14/20 25 03/14/2025 COMP METAB OLIC PANEL blood urea nitrogen 10 mg/dL 7-18 Not Available [facility] (Lab Registration) [address] [place], [address], 03/14/2025 13:45:03 03/14/20 25 03/14/2025 COMP METAB OLIC PANEL creatinine 0.7 mg/dL 0.6-1. 0 Not Available [facility] (Lab Registration) [address] [place], [address], 03/14/2025 13:45:03 03/14/20 25 03/14/2025 COMP METAB OLIC PANEL BUN/creatini ne ratio 14.3 9-21 Not Available [facility] (Lab Registration) [address] [place], [address], 03/14/2025 13:45:03 03/14/20 25 03/14/2025 COMP METAB OLIC PANEL estimated glom filtration rate 116 mL/mi n >60- GFR LIMIT ATION : The eGFR equat ion CKD-E PI 2020 is not appli cable for pedia tric patie nts or great er than 90 years of age. The follo wing condi tions may alter the GFR resul t: extre mes in body size, malnu triti on or obesi ty, skele nader muscl e disea se, parap legia or quadr ipleg ia, veget tarun diet or rapid ly virgen ing kiney funct ion. Not Available [facility] (Lab Registration) [address], [place], [address], 03/14/2025 13:45:03 03/14/20 25 03/14/2025 COMP METAB OLIC PANEL osmolality (calculated) 282 mOsm/ kg 275-30 1 OSMOL ALITY IS A CALCU LATIO N UTILI ZING THE SERUM /PLAS MA SODIU M, GLUCO SE AND UREA NITRO GEN (BUN) LEVEL S. FOR THE MOST ACCUR ATE RESUL T A MEASU RED SERUM OSMOL ALITY IS SUGGE STED. Not Available [facility] (Lab Registration) [address], [place], [address], 03/14/2025 13:45:03 03/14/20 25 03/14/2025 COMP METAB OLIC PANEL total protein 6.9 g/dL 6.4-8. 2 Not Available [facility] (Lab Registration) [address] [place], [address], 03/14/2025 13:45:03 03/14/20 25 03/14/2025 COMP METAB OLIC PANEL albumin 3.7 g/dL 3.4-5. 0 Not Available [facility] (Lab Registration) [address] [place], [address], 03/14/2025 13:45:03 03/14/20 25 03/14/2025 COMP METAB OLIC PANEL calcium 9.0 mg/dL 8.5-10 .1 Not Available [facility] (Lab Registration) [place], [address], 03/14/2025 13:45:03 03/14/20 25 03/14/2025 COMP METAB OLIC PANEL corrected calcium 9.2 mg/dL 8.5-10 .1 Not Available [facility] (Lab Registration) [address] [place], [address], 03/14/2025 13:45:03 03/14/20 25 03/14/2025 COMP METAB OLIC PANEL bilirubin total 1.2 mg/dL 0.4-1. 5 Not Available [facility] (Lab Registration) [address] [place], [address], 03/14/2025 13:45:03 03/14/20 25 03/14/2025 COMP METAB OLIC PANEL AST (SGOT) 15 U/L 15-37 Not Available [facility] (Lab Registration) [address] [place], [address], 03/14/2025 13:45:03 03/14/20 25 03/14/2025 COMP METAB OLIC PANEL ALT (SGPT) 18 U/L 12-78 Not Available [facility] (Lab Registration) [address] [place], [address], 03/14/2025 13:45:03 03/14/20 25 03/14/2025 COMP METAB OLIC PANEL alk phosphatase 54 U/L 50-120 Not Available [facility] (Lab Registration) [address] [place], [address], 03/14/2025 13:45:03 03/14/20 25 03/14/2025 COMP METAB OLIC PANEL note Unles s other martínez noted testi ng perfo rmed at: [facility] [address] [facility] [address] [place] [address] [phone] Virgil haider MD CLIA: [id number] Not Available [facility] (Lab Registration) [address] [place], [address], 03/14/2025 13:45:03 03/14/20 25 03/14/2025 LIPID PANEL triglyceride 111 mg/dL 20-200 The Natio nal Nicole stero l Educa tion Progr am (NCEP ) has set the follo wing guide lines for Fasti ng Trigl yceri sal: KUMAR L: <150 mg/dL BORDE RLINE HIGH: 150 - 199 mg/dL HIGH: 200 - 499 mg/dL VERY HIGH: > or =500 mg/dL Not Available [facility] (Lab Registration) [address] [place], [address], 03/14/2025 13:45:05 03/14/20 25 03/14/2025 LIPID PANEL cholesterol 190 mg/dL 0-200 The Natio nal Nicole stero l Educa tion Progr am (NCEP ) has set the follo wing guide lines for Fasti ng Nicole stero l: SATISH ABLE: <200 mg/dL BORDE RLINE HIGH: 200 - 239 mg/dL HIGH: > or =240 mg/dL Not Available [facility] (Lab Registration) [address] [place], [address], 03/14/2025 13:45:05 03/14/20 25 03/14/2025 LIPID PANEL HDL cholesterol 50 mg/dL 60- low The Natio nal Nicole stero l Educa tion Progr am (NCEP ) has set the follo wing guide lines for Fasti ng HDL Nicole stero l: LOW HDL: <40 mg/dL KUMAR L: 40 - 60 mg/dL SATISH ABLE: >60 mg/dL Not Available [facility] (Lab Registration) [address] [place], [address], 03/14/2025 13:45:05 03/14/20 25 03/14/2025 LIPID PANEL LDL calculated 118 mg/dL 100- The Natio nal Nicole stero l Educa tion Progr am (NCEP ) has set the follo wing guide lines for Fasti ng LDL Nicole stero l: OPTIM AL: < 100 mg/dL LOW RISK: 100 - 129 mg/dL BORDE RLINE HIGH: 130 - 159 mg/dL HIGH: 160 - 189 mg/dL VERY HIGH: > or = 190 mg/dL Not Available [facility] (Lab Registration) [address] [place], [address], 03/14/2025 13:45:05 03/14/20 25 03/14/2025 LIPID PANEL chol/HDL ratio 4 -5 Not Available [facility] ([facility] Registration) [address] [place], [address], 03/14/2025 13:45:05 03/14/20 25 03/14/2025 LIPID PANEL note Unles s other martínez noted testi ng perfo rmed at: [facility] [address] [place] [address] [phone] Virgil haider MD CLIA: [id number] Not Available [facility] (Lab Registration) [address] [place], [address], 03/14/2025 13:45:05 03/14/20 25 03/14/2025 DAVEY TIN ferritin 50 NG/mL 8-388 Not Available [facility] (Lab Registration) [address] [place], [address], 03/14/2025 14:42:51 03/14/20 25 03/14/2025 DAVEY TIN note Unles s other martínez noted testi ng perfo rmed at: [facility] [address] [place] [address] [phone] Virgil haider MD CLIA: [id number] Not Available [facility] (Lab Registration) [address] [place], [address], 03/14/2025 14:42:51 03/14/20 25 03/14/2025 VITAM IN B12 vitamin B12 619 pg/mL 193-98 6 Not Available [facility] (Lab Registration) [address] [place], [address], 03/14/2025 14:42:52 03/14/20 25 03/14/2025 VITAM IN B12 folate (folic acid), serum 13.4 NG/mL 8.6-58 .9 Not Available [facility] (Lab Registration) [address] [place], [address], 03/14/2025 14:42:52 03/14/20 25 03/14/2025 VITAM IN B12 note Unles s other martínez noted testi ng perfo rmed at: [facility] [address] [place] [address] [phone] Virgil haider MD CLIA: [id number] Not Available [facility] (Lab Registration) [address] [place] [place], [address], 03/14/2025 14:42:52 03/14/20 25 03/14/2025 IRON/ TIBC/ %SAT (IRON STUDI ES) iron 79 ug/dL 35-150 Not Available [facility] (Lab Registration) [address] [place], [address], 03/14/2025 14:42:52 03/14/20 25 03/14/2025 IRON/ TIBC/ %SAT (IRON STUDI ES) total iron bind cap (TIBC) 325 ug/dL 250-45 0 Not Available [facility] (Lab Registration) [address] [place], [address], 03/14/2025 14:42:52 03/14/20 25 03/14/2025 IRON/ TIBC/ %SAT (IRON STUDI ES) % saturation 24 % 15-55 Not Available [facility] (Lab Registration) [address] [place], [address], 03/14/2025 14:42:52 03/14/20 25 03/14/2025 IRON/ TIBC/ %SAT (IRON STUDI ES) note Unlmarlene s other martínez noted testi ng perfo rmed at: [facility] [address] [place] [address] [phone] Virgil haider MD CLIA: [id number] Not Available [facility] (Lab Registration) [address] [place], [address], 03/14/2025 14:42:52 03/14/20 25 03/14/2025 elect juan pablo richardson am No observ ation record ed. [facility] [address], [place], [address], 03/14/2025 13:44:59 Result Notes None recorded. Problems Name Problem SNOMED Code Status Onset Date Resolution Date Notes Provider Name and Address Organization Details Recorded Time Anxiety 98982398 [facility] [place] 12/29/2023 08:55:01 Problem Notes None recorded. Medical Equipment None Reported. Allergies Allergen ID Allergen Name Allergen Category Reaction Reaction Severity Criticality Documentation Date Start Date Code Code System Note Provider Name and Address Organization Details Recorded Time 624094 lavender extract food Not available Not available Not available 12/29/2023 06735 67 RxNorm TANESHA LOMAX NP [address], [place], [address] [place] [address] & [place] 08:50:40 No known drug allergies Medications Name [...] height Body mass index (BMI) Body weight Body temperature Oxygen saturation Oxygen saturation in Arterial blood by Pulse oximetry Heart rate Systolic And Diastolic Provider Name and Address Organization Details Last Updated DateTime 4 170.18 cm 49.5 kg/m2 943235. 19 g 98.4 [degF] 95 % 95 % 113 /min 144/81 mm[Hg] Jose Moore n [place] - [facility] & [place] 4 08:59:17 Date Recorded Body height Systolic And Diastolic Provider Name and Address Organization Details Last Updated DateTime 02/18/2024 170.18 cm 120/80 mm[Hg] TANESHA LOMAX NP [address] [place] [address], [address], [place] - [facility] & [place] 02/18/2024 10:37:20 Date Recorded Body height Body mass index (BMI) Body weight Body temperature Oxygen saturation Oxygen saturation in Arterial blood by Pulse oximetry Heart rate Respiratory rate Systolic And Diastolic Provider Name and Address Organization Details Last Updated DateTime 5 170.18 cm 49.2 kg/m2 162212 g 97.5 [degF] 99 % 99 % 79 /min 18 /min 126/75 mm[Hg] Jeyson Larios [facility] & [place] 11:42:50 Date Recorded Body height Body mass index (BMI) Body weight Provider Name and Address Organization Details Last Updated DateTime 05/03/2025 170.18 cm 44.6 kg/m2 661197.83 g TANESHA LOMAX NP [address] [place], [address] [facility] & [place] 05/03/2025 15:39:20 Date Recorded Body height Body mass index (BMI) Body weight Provider Name and Address Organization Details Last Updated DateTime 06/27/2025 170.18 cm 41.5 kg/m2 293923.98 g TANESHA LOMAX NP [address] [place], [address] [facility] & [place] 06/27/2025 11:02:13 Social History Question Answer Notes LastModified by Organizat ion Details LastModified Time Tobacco Smoking Status Never Smoker Asuncion Vivas maxi, [facility] & [place] 12/15/2023 09:45:32 Do You Have An Advance Directive? No Information not available 03/14/2025 Are You Blind Or Do You Have Difficulty Seeing? No Information not available 12/29/2023 Is Blood Transfusion Acceptable In An Emergency? Yes [email or web address] Information not available 03/14/2025 What Is Your Level Of Caffeine Consumption? Occasional [email or web address] Information not available 03/14/2025 Are You Deaf Or Do You Have Serious Difficulty Hearing? No Information not available 03/14/2025 What Type Of Diet Are You Following? CARBOHYDRATE [email or web address] Information not available 03/14/2025 How Many Days Of Moderate To Strenuous Exercise, Like A Brisk Walk, Did You Do In The Last 7 Days? 5 [email or web address] Information not available 03/14/2025 Do You Feel Safe At Home? Yes [email or web address] Information not available 03/14/2025 Do You Have A Medical Power Of Ase Master Mechanic? No [email or web address] Information not available 03/14/2025 What Was The Date Of Your Most Recent Tobacco Screening? 12/29/2023 [email or web address] Information not available 12/29/2023 How Many Children Do You Have? 0 [email or web address] Information not available 03/14/2025 What Is Your Relationship Status? Single [email or web address] Information not available 03/14/2025 Do You Use Your Seat Belt Or Car Seat Routinely? Yes [email or web address] Information not available 03/14/2025 Are You Sexually Active? No [email or web address] Information not available 03/14/2025 Are You Passively Exposed To Smoke? No Information no t available 12/29/2023 Do You Have Difficulty Walking Or Climbing Stairs? No [email or web address] Information not available 03/14/2025 Sex: Female Functional Status Question Answer Note LastModified by Organizat ion Details LastModified Time Do you use any illicit or recreational drugs? No Information not available 12/29/2023 Do you or have you ever used any other forms of tobacco or nicotine? No [email or web address] Information not available 03/14/2025 What is your level of alcohol consumption? Occasional [email or web address] Information not available 02/17/2025 Do you have transportation difficulties? No Information not available 03/14/2025 Are you able to walk independently without assistance or assistive devices? YESWOREST [email or web address] Information not available 03/14/2025 Do you have difficulty doing errands alone? No [email or web address] Information not available 03/14/2025 Are you able to care for yourself independently? 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 No [email or web address] Information not available 03/14/2025 What is your exercise level? Occasional Information not available 12/29/2023 Mental Status Question Answer Note LastModified by Organizat ion Details LastModified Time Do you feel stressed (tense, restless, nervous, or anxious, or unable to sleep at night)? [id number] Information not available 12/29/2023 Do you have difficulty concentrating, remembering or making decisions? Yes Information no t available 03/14/2025 Family History Relationship Description Onset Age of this Age Resolved Age Notes LastModified by Organization Details LastModified Time Father No current problems or disability Not available 06/27 10:47:07 Father Hypertensive disorder pt. added direct ly (12/25) [email or web address] Not available 12/26/2023 09:22:29 Mother No current problems or disability Mother in her 30s due to brain aneury sm due to alcoho l and drug use [email or web address] Not available 06/27/2025 10:47:07 Mother Aneurysm 33 [email or web address] Not availabl e 06/27/2025 10:47:07 Paternal Grandmother [...] Jose Luna null, [place] - [facility] - [place] & [place] 12/29/2023 09:46:04 MMR 10/01/2001 completed Jose Luna null, [place] [facility] & [place] 12/29/2023 08:54:33 COVID-19, mRNA, LNP-S, PF, 30 mcg/0.3 mL dose 08/19/2021 completed Jose Luna null, [place] [facility] & [place] 12/29/2023 08:54:33 COVID-19, mRNA, LNP-S, PF, 30 mcg/0.3 mL dose 09/30/2021 completed Jose Luna null, [place] [facility] - [place] & [place] 12/29/2023 08:54:33 Hep B, adolescent or pediatric 10/29/2001 completed Jose Luna null, [place] [facility] - [place] & [place] 12/29/2023 08:54:33 Hep B, adolescent or pediatric 10/01/2001 completed Jose german, [place] - [facility] - [place] & [place] 12/29/2023 08:54:33 Influenza, split virus, quadrivalent, PF 09/10/2020 completed Jose german, [place] - [facility] - [place] & [place] 12/29/2023 08:54:33 Past Encounters Encounter ID Performer Location Encounter Start Date Encounter Closed Date Diagnosis/Indication Diagnosis SNOMED-CT Code Diagnosis ICD10 Code Diagnosis IMO Codes Diagnosis Note [id number] Ruben Davis MD [facility] [address] [place] [address] 12/29/2023 08:48:21 12/29/2023 09:47:34 Uses oral contraception 7618873 Z30.41 Contracept ion care management 862546796 Z30.9 Effectiven ess, correct use, advantages /disadvant ages, common side effects, serious complicati ons, contra-ind ications/p recautions and return to fertility were reviewedne gative urine test restart Loestrin Anemia 649456115 D64.9 taking iron supplement ation, recheck lab work todaydenie s any bleeding or bruising Generalize d anxiety disorder 53223288 F41.1 positive PHQ-9 and gadtakes magnesium but otherwise no medication sdenies SI/HIstart Lexaprofol low-up and 6-8 weeks, needs telehealth Moderate r ecurrent major depression 85572354 F33.1 denies SI/HIstart Lexapro Elevated blood-pressure reading without diagnosis of hypertension 908775109 R03.0 patient monitors at home and systolic runs around 120educate d on goal of less than 130/90advi sed low sodium diet, healthy lifestyle including exercise as ableER if any symptoms such as chest pain, shortness of breath Body mass index 40+ - severely obese 440807128 Z68.42 reinforced lifestyle changes patient is working on Vitamin D deficiency 347 13263 E55.9 recheck lab work today Mild inter mittent asthma 397455226 J45.20 -Patient with mild intermitte nt asthma under good control. -Triggers include: seasonal changes -Advised to continue to use albuterol no more than q4h PRN, but call clinic for exacerbati on or if needing to use more than 2x/week or more than 2 nighttime awakenings per month. MDI and spacer use reviewed. -Controlle r medication not needed at this time. -F/u in 3-6 months, sooner if needed. Vaccination needed 30575 64773 85302 Z23 [id number] TANESHA LOMAX NP [address] [place] [address] 02/18/2024 10:28:22 02/18/2024 10:35:51 Insomnia 795197549 G47.00 Add on trazodone start with 1 tablet can take 1-2 tablets as neededtria l this for 2 weeks and let me know if this helps and we can send refills incontinue with current Lexapro dosing while adding on trazodone then we can consider increasing Lexapro to 20 mg if needed Mixed anxi ety and depressive disorder 015077074 F41.8 denies SI/HIsee above [id number] TANESHA LOMAX NP [facility] [address] [place] [address] 03/14/2025 11:35:03 03/16/2025 07:53:20 Physical examination 5600439 Z00.00 [id number] Patient presented to office today for their Annual Wellness Visit. Education was provided on healthy nutrition, including a diet rich in fruits and vegetables , minimizing simple carbohydra vidya, salt, and saturated fats. Encouraged regular cardiovasc ular exercise such as walking at least 30 minutes daily, 5 times per week. Emphasized preventive health measures and educated pt on fall prevention and community- based lifestyle interventi ons to help reduce health risks and promote healthy living. History of anemia 676898 002 Z86.2 900883 recheck lab work today Screening for cardiovascular system disease 465076463 Z13.6 196079 EKG within normal limits Generalize d anxiety disorder 90714355 F41.1 controlled , denies SI/HI, refills provided Contracept ion care management 066454726 Z30.9 Effectiven ess, correct use, advantages /disadvant ages, common side effects, serious complicati ons, contra-ind ications/p recautions and return to fertility were reviewedne gative urine test restart Loestrin Insomnia 667623316 G47.0 0 controlled , continue trazodone sleep hygiene Mild inter mittent asthma 590278197 J45.20 -Patient with mild intermitte nt asthma under good control. -Triggers include: seasonal changes -Advised to continue to use albuterol no more than q4h PRN, but call clinic for exacerbati on or if needing to use more than 2x/week or more than 2 nighttime awakenings per month. MDI and spacer use reviewed. -Controlle r medication not needed at this time. -F/u in 3-6 months, sooner if needed. Body mass index 40+ - severely obese 187432144 Z68.42 171210 EKG reviewed and normal, discussed side effects with phentermin e, patient agrees to plan, we will do a telehealth follow-up in 4 weeks to assess progress along with her weight at that time due to difficulty getting off work and making appointmen ts with fear of losing her job; understand s risk vs benefit, short term tool [id number] TANESHA LOMAX NP [address] [place] [address] 05/03/2025 15:31:03 05/11/2025 10:29:58 Body mass index 40+ - severely obese 018443375 Z68.41 378749 EKG reviewed and normal, discussed side effects with phentermin e, patient agrees to plan, we will do a telehealth follow-up in 4 weeks to assess progress along with her weight at that time due to difficulty getting off work and making appointmen ts with fear of losing her job; understand s risk vs benefit, short term tool Severe obesity 256506338 1 9104 E66.813 Z68.41 [id number] refill provided [id number] TANESHA LOMAX NP [address] [place] [address] 06/27/2025 10:46:58 06/27/2025 16:33:53 Generalized anxiety disorder 48234720 F41.1 controlled , denies SI/HI, [facility] 203351016 Z30.9 refill provided Insomnia 316053923 G47.0 0 controlled , continue trazodone sleep hygiene Body mass index 40+ - severely obese 950636563 Z68.41 EKG reviewed and normal 2025not currently having any side effects with phentermin e, will continue for another month and then do a drug holiday continue with lifestyle changes once a week small engine trainer tomorrow starts Health Concerns Section Related Observation LastModified by Organization Detai ls LastModified Time None Recorded Concern Status LastModified by Organization Details LastModified Time None Recorded Advance Directives Directive N: Payers Insurance Date Sequence Insurance Name Policy Number Policy Beavers Covered Member ID Beavers Member ID Guarantor Name 06/23/2025 1 [facility] [id number] Nichol Wong [id number] Nicholjoseph Wong 03/10/2025 1 [place] [id number] Nichol N Wong [id number] Nichol Sharlene Wong Notes Date Note Type Note Provider Name and Address Organization Details Recorded Time 12/29/2023 text/html ROS as noted in the HPI patient is 33-year-old female who presents as a new patient. Previously followed by Mago Garcias.Needs refill on her oral contraception. She had her last day of menses today. Menstrual cycles are regular when she is on control but when she is not they are irregular. Denies any vaginal discharge or pain. She does have intermittent asthma, flare-ups with seasonal changes she needs a refill on her inhaler. She is taking iron supplement that was started after her hospitalization in the ICU with [facility]. Needs her lab work recheck today. Has inability to sleep unable to fall asleep or stay asleep, has tried [id number] sleep a it and sometimes works but sometimes does not. She is always anxious. Denies any SI/HI positive PHQ-9 and simran. She does monitor her blood pressure at home and systolic around 120 denies any chest pain or swelling. Only shortness of breath with asthma flare up. 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 TANESHA LOMAX, KOLE [address] [place] [address], [id number], [place] - [place] - [place] & [place] 12/29/2023 09:30:45 02/18/2024 text/html ROS as noted in the HPI 33-year-old female who presents via telehealth visit to follow-up on starting Lexapro. Has not noticed much change but denies any side effects. Anxiety continues to be worse at night when she lays down to go to sleep, unable to sleep. Denies any SI/HI. Has not had any elevated blood pressure readings. Checks intermittently with average 120-130 systolic. Denies any chest pain shortness of breath or swelling. TANESHA LOMAX NP [address] [place], [phone], [facility] & [place] 02/18/2024 10:40:00 03/14/2025 text/html ROS as noted in the HPI Patient presents for annual visit.Vision screening: not [id number] screening: not [id number] falls, fractures surgeries: deniesSpecialist: deniesColonoscopy: never, reports normal bowel and bladder habitsAnxiety/Depress ion screening: negative, mood well controlled with Lexapro therapy. Denies any SI/HI.Denies any breast lumps bumps nipple changes or concerns, taking her Loestrin oral contraception, occasionally has irregular mensesImmunizations: [id number] has been working on lifestyle changes for over a year without results, limiting her calories to 1600 calories per day, she is walking 1-2 miles per day, drinking over 140 oz of water per day, eating high-protein, tried and failed multiple diets without improvement. Would like to have help with weight. Unable to afford any GI LP, denies any heart issuesSleep controlled with trazodone. TANESHA LOMAX NP [address] [place], [id number], [facility] & [place] 03/15/2025 10:11:36 05/03/2025 text/html ROS as noted in the HPI start 3:38telephone visit; patient and provider both located in [place] 34 yr old female who presents via [id number] to 1600 calorieswalking 2 to 3 miles per day; weight exercisesaim 120 ounces water per dayhigh proteinno medication side effects mood controlled with lexaprosleep controlled with trazadone TANESHA LOMAX NP [address] [place], [id number], [facility] & [place] 05/25/2025 14:30:17 06/27/2025 text/html ROS as noted in the HPI TELEPHONE VISIT BOTH PATIENT AND PROVIDER LOCATED IN [place] 34-year-old female who presents via telephone for follow-up on weight management. Continues to work on lifestyle changes. Has decreased her portion sizes and carbohydrate intake. Will start with a small engine trainer for exercise tomorrow. Tolerating phentermine without side effect. Anxiety is controlled. Insomnia is controlled TANESHA LOMAX NP [address] [place] [address], [id number], [place] - [place]NT [facility] & [place] 06/27/2025 12:37:29 OBGyn Episode No OBEpisode recorded.
--- OUTSIDE RECORDS SUMMARY | 2025-08-05 11:10 | XMS_ITS | Clinical Summary ---
Author Organization [facility] Address [address] [place] [address] Care Team Providers Care Disability Advocate Name Role Phone Isha Blanco MD Primary Care Provider [phone]- [phone] Allergies No known active allergies Medications ibuprofen (ADVIL,MOTRIN) 800 MG tabletIndication s:Acute URI,Sore throat Take 1 tablet by mouth Every 8 (Eight) Hours As Needed for Mild Pain . 90 tablet 10/03/2019 Active Active Problems No known active problems Immunizations Immunization Administration Dates Next Due Hep B, Adolescent or Pediatric 10/29/2001,2000 MMR 10/01/2001 Social History Tobacco Use Types Packs/Day Years Used Date Smoking Tobacco: Never Abuse Screen Answer Date Recorded Unsafe at Home or Work/School Not on file Feels Threatened by Someone? Not on file 08/2023 Does Anyone Keep You from Co ntacting Others or Doint Things Outside the Home? Not on file 07/16/2023 Physical Sign of Abuse Present Not on file 1 Housing Stability Answer Date Recorded Current Living Arrangements Not on file 07/06 Potentially Unsafe Housing Conditions Not on michelle e 07/16/2023 Family and Community Support Answer Akash e Recorded Help with Day-to-Day Activities Not on file 07/16/2023 Lonely or Isolated Not on file 07/16/2023 Employment Answer Date Recorded Do you want help finding or keeping work or a alex b? Not on file 07/16/2023 Disabilities Answer Date Recorded Concentrating, Remembering, or Making Decisions Difficulty Not on file 07/16/2023 Doing Errands Independently Difficulty Not on fi le 07/16/2023 Education Answer Date Recorded Help with school or training? Not on file 10 /08/2023 Preferred Language Not on file 07/16/2023 Comments No Sex and Gender Information Value Date Recorded Sex Assigned at Not on file Legal Sex Female 6:23 PM EST Gender Identity Not on file Sexual Orientation Not on file Last Filed Vital Signs Vital Sign Reading Time Taken Comments Blood Pressure 138/86 10/03/2019 11:53 AM EST Pulse 86 10/03/2019 11:53 AM EST Temperature 36.9 C (98.4 F) 10/03/2019 11:53 AM EST Respiratory Rate 16 10/03/2019 11:53 AM EST Oxygen Saturation 98% 10/03/2019 11:53 AM EST Inhaled Oxygen Concentration - - Weight 142 kg (312 lb) 10/03/2019 11:53 AM EST Height 167.6 cm (5' 6 ) 10/03/2019 11:53 AM EST Body Mass Index 50.36 10/03/2019 11:53 AM EST Plan of Treatment Health Maintenance Due Date Last Done Comments Annual Gynecologic Pelvic an d Breast Exam 1990 TDAP/TD VACCINES (1 - Tdap) 2009 ANNUAL PHYSICAL 09/17/2017 HEPATITIS C SCREENING 09/17/2017 INFLUENZA VACCINE 05/06/2025 Pneumococcal Vaccine 0-49 Aged Out No longer eligible based on patient's age to complete this topic Care Teams Disability Advocate Relationship Specialty Start Date End Date Isha Blanco MD PCP - General Family Medicine 09/17/17
[2025-08-05 14:06] LABS: Hepatitis C Ab Qual. W/ RFX NEGATIVE (Negative)
[2025-08-06 08:25] LABS: Hepatitis B Surface Antigen Negative (Negative)
== END 2025-08-05 23:59 | disposition home or self-care (01) ==
LOC: LAB 11:08
PROVIDERS: PCP Nurse Practitioner Family; Visit Provider Obstetrics & Gynecology
DX: Z11.3 Encounter for screening for infections with a predominantly sexual mode of transmission (principal)
CPT/HCPCS: 36415; 86803; 87340; 87389

== ENCOUNTER 2025-09-23 12:38 | Outpatient (CLI) | payer OTHER, SELFPAY ==
--- OUTSIDE RECORDS SUMMARY | 2025-09-23 12:40 | XMS_ITS | Clinical Summary ---
[facility] Address [address] [place] [address] Care Team Providers Care Machine Cementer Name Role Phone Isha Blanco MD Primary Care Provider +1- [phone] Allergies No known active allergies Medications ibuprofen [...] age to complete this topic Care Teams Machine Cementer Relationship Specialty Start Date End Date Isha Blanco MD PCP - General Family Medicine 09/17/17
--- NOTE | 2025-09-23 13:00 | US_ITS ---
PROCEDURE: US PELVIC CLINICAL INDICATION: fibroids COMPARISON: CT,DOC CT ABD/PELVIS W IV AND ORAL CO from 06/28/2025 FINDINGS: Transvaginal and transabdominal sonographic images of the pelvis were obtained. UTERUS: 15.7 cm x 16.3cmx 12.3 cm. The endometrium could not be distinguished. There is a right-sided fibroid measuring 7.4 cm x 8.5 cm x 6.1 cm LEFT OVARY: Not visualized RIGHT OVARY: Not visualized Both ovaries are seen and appear normal. Doppler flow to both ovaries are seen. There is no fluid in the cul-de-sac. IMPRESSION: 1. Difficult examination due to extreme size of uterus. The uterus could not be seen in its entirety transvaginally. Transabdominal imaging was then performed. 2. The fundus of the uterus contains a large fibroid that makes up most of the uterus itself. 3. There appears to be a fibroid on the right side measuring up to 8.5 cm in size. 4. The ovaries were not visualized. 5. No fluid in the cul-de-sac. Dictated by: Cheng Lazcano MD 09/23/2025 17:59 Cheng Lazcano MD in OV 09/23/2025 17:59
== END 2025-09-23 23:59 | disposition home or self-care (01) ==
LOC: RAD 12:38
PROVIDERS: PCP Nurse Practitioner Family; Visit Provider Obstetrics & Gynecology
DX: D25.9 Leiomyoma of uterus, unspecified (principal); N85.2 Hypertrophy of uterus
CPT/HCPCS: 76856

== ENCOUNTER 2025-09-26 15:31 | Outpatient (CLI) | payer OTHER, SELFPAY ==
--- OUTSIDE RECORDS SUMMARY | 2025-09-26 15:33 | XMS_ITS | Clinical Summary ---
[facility] Address [address] [place] [address] Care Team Providers Care Police Sergeant Name Role Phone Isha Blanco MD Primary Care Provider +1- [phone] Allergies No known active allergies Medications ibuprofen [...] age to complete this topic Care Teams Police Sergeant Relationship Specialty Start Date End Date Isha Blanco MD PCP - General Family Medicine 09/17/17
--- NOTE | 2025-09-26 16:15 | MR_ITS ---
PROCEDURE INFORMATION: Exam: MR Pelvis Without and With Contrast Exam date and time: 09/26/2025 4:44 PM Age: 35 years old Clinical indication: Pelvic pain; Large fibroid seen on ultrasound 09/23/2025. PT stated she has had pain in pelvic region since June 2025. PT stated she has never had any children; Additional info: Pelvic pain/ fibroid uterus TECHNIQUE: Imaging protocol: Magnetic resonance imaging of the pelvis without and with contrast. Contrast material: PROHANCE; Contrast volume: 22 ml; Contrast route: IV; COMPARISON: CT ABD/PELVIS W IV AND ORAL CO 06/28/2025 1:51 PM FINDINGS: Intraperitoneal space: No free fluid or masses. Urinary bladder: No wall thickening or masses. Reproductive: A slightly heterogeneous, tri lobed uterine mass is isointense on T1 W and T2W to myometrium and corresponds to the mass described on CT scan dated 06/28/2025. The well-defined mass measures 20 x 10 x 15 cm and has no invasion of surrounding structures. No abnormalities of the cervix. No adnexal masses. No solid ovarian masses. Lymph nodes: No lymphadenopathy. Bones/joints: No bone lesions or marrow edema. Soft tissues: No other masses or fluid collections. IMPRESSION: 1. Tri lobed uterine fibroid measures 20 cm in greatest diameter. 2. No other pelvic masses or lymphadenopathy.
[2025-09-26] MEDS: GADOTERIDOL INJ 20ML SYRINGE 22 ML IV (17:25)
[2025-09-26] MEDS: SODIUM CHLORIDE 0.9% 10ML SYR (RAD ONLY) 10 ML IV (17:25)
== END 2025-09-26 23:59 | disposition home or self-care (01) ==
LOC: RAD 15:31
PROVIDERS: PCP Nurse Practitioner Family; Visit Provider Obstetrics & Gynecology
DX: D25.9 Leiomyoma of uterus, unspecified (principal)
CPT/HCPCS: 72197; A9576